=== PATIENT | female | born 1985 | race Caucasian/White ===

== ENCOUNTER 2022-11-11 12:58 | Outpatient (OUT) | payer OTHER, SELFPAY ==
--- NOTE | 2022-11-11 13:08 | US_ITS ---
[address] [address] Patient Name: MIKE PASTRANA MRN: [id number] date: 1985 Sex: F Assigned Patient Location: [facility] Current Patient Location: Accession/Order Number: [id number] Exam Date: 11/11/2022 13:15 Report Date: 11/11/2022 16:00 At the request of: OLE ABARCA Procedure: US OB placenta EXAMINATION: US OB placenta HISTORY: Uterine cramping N94.89 COMPARISON: No relevant comparison available. FINDINGS: PLACENTA: Anterior with lower margin 9.7 cm from os. No subchorionic hematoma or abruption. CERVIX LENGTH: 3.4 cm in length, closed. HEART RATE: 140 bpm OTHER: None. GA: 24 weeks 5 days CARINA: 02/26/2023 US/US OB placenta IMPRESSION: 1. Single live intrauterine . 2. Normal-appearing anterior placenta without previa. 3. Closed cervix 3.4 cm in length. Electronically authenticated by: JIMBO ALARCON Date: 11/11/2022 16:00
--- NOTE | 2022-11-11 13:17 | US_ITS ---
The [address] [address] Patient Name: MIKE PASTRANA MRN: [id number] date: 1985 Sex: F Assigned Patient Location: [facility] Current Patient Location: Accession/Order Number: [id number] Exam Date: 11/11/2022 13:20 Report Date: 11/11/2022 16:00 At the request of: OLE ABARCA Procedure: US OB transvaginal EXAMINATION: US OB placenta HISTORY: Uterine cramping N94.89 COMPARISON: No relevant comparison available. FINDINGS: PLACENTA: Anterior with lower margin 9.7 cm from os. No subchorionic hematoma or abruption. CERVIX LENGTH: 3.4 cm in length, closed. HEART RATE: 140 bpm OTHER: None. GA: 24 weeks 5 days CARINA: 02/26/2023 US/US OB transvaginal IMPRESSION: 1. Single live intrauterine . 2. Normal-appearing anterior placenta without previa. 3. Closed cervix 3.4 cm in length. Electronically authenticated by: JIMBO ALARCON Date: 11/11/2022 16:00
== END 2022-11-11 12:59 | disposition home or self-care (01) ==
LOC: RAD 13:02
PROVIDERS: Visit Provider Midwife
DX: O26.892 Other specified pregnancy related conditions, second trimester (principal); N94.89 Other specified conditions associated with female genital organs and menstrual cycle; Z3A.24 24 weeks gestation of pregnancy
CPT/HCPCS: 76815; 76817

== ENCOUNTER 2022-12-23 15:56 | Outpatient (OUT) | payer OTHER, SELFPAY ==
--- NOTE | 2022-12-23 15:58 | US_ITS ---
[address] [address] Patient Name: MIKE PASTRANA MRN: [id number] date: 1985 Sex: F Assigned Patient Location: Current Patient Location: Accession/Order Number: [id number] Exam Date: 12/23/2022 16:00 Report Date: 12/24/2022 02:11 At the request of: OLE ABARCA Procedure: US OB growth EXAMINATION: US OB growth HISTORY: 30 weeks gestation of Z3A.30 COMPARISON: No relevant comparison available. FINDINGS: Heart Rate: 145.9 bpm Number: 1.0 Position: CEPHALIC Amniotic Fluid Volume: 14.2 cm Maximum Vertical Pocket: 6.7 cm BIOMETRY: BPD: 8.1 cm cm; 32 weeks 4 days HC: 29.1 cmcm; 32 weeks 0 days AC: 27.3 cm cm; 31 weeks 3 days FL: 6.1 cm cm; 31 weeks 5 days EFW: 1808.0 grams; 70% FL/AC: 22.4 FL/BPD: 75.4 HC/AC: 1.1 GESTATIONAL AGE: Age by EDC: 30 weeks 5 days CARINA by EDC: 02/26/2023 Age by US: 32 weeks 0 days CARINA by US: 02/17/2023 US/US OB growth IMPRESSION: 1. Single live intrauterine with growth detailed above. Electronically authenticated by: JIMBO ALARCON Date: 12/24/2022 02:11
== END 2022-12-23 15:57 | disposition home or self-care (01) ==
LOC: US 15:56
PROVIDERS: Visit Provider Midwife
DX: Z34.93 Encounter for supervision of normal pregnancy, unspecified, third trimester (principal)
CPT/HCPCS: 76816

== ENCOUNTER 2023-02-13 07:24 | Outpatient (OUT) | payer OTHER, SELFPAY ==
[2023-02-13 14:05] VITALS: BP 131/74; PULSE 84
--- OUTSIDE RECORDS SUMMARY | 2023-03-21 17:33 | XMS_ITS | CCD ---
Author Name Unknown Address [address] [place] [address] Organization [facility] Care Team Providers Care Top Installer Name Role Phone SANDI ESPINOZA Admitting Unavailable SANDI ESPINOZA Attending Unavailable [facility], DOCTOR Primary Care Unavailable JENS BUSBY V Consulting Unavailable SARAN ALARCON Consulting Unavailable SANDI ESPINOZA Consulting Unavailable OLE ABARCA Referring Unavailable OLE ABARCA Referring Unavailable OLE ABARCA Attending Unavailable Allergies Allergy Classification Reported Allergen(s) Allergy Type Date of Onset Reaction(s) Facility (1 source) Povidone-Iodine Drug Allergy [facility] Repository Problems Problem Classification Problem Date Documented Da te Episodic/Chronic Nonmalignant breast conditions (4 sources) Solitary cyst of left breast; Translations: [SOLITARY CYST OF LEFT BREAST] Onset: 04-19-2017 Episodic Results Test Name Value Interpretation Reference Range Facil ity US OB FOLLOW UP TRANSABDOMIN AL APPROACHon 02-16-2023 US OB FOLLOW UP TRANSABDOMIN AL APPROACH EXAM: US OB FOLLOW UP TRANSABDOMINAL APPROACH DATE: 02/16/2023 4:11 PM COMPARISON: 02/09/2023 Transabdominal ultrasound of the gravid uterus was performed. FINDINGS: A single live intrauterine is noted in cephalic position. cardiac activity is measured at 139 bpm. The cervix appears closed measuring approximately 4 cm in longitudinal length. A grade 1-appearing placenta is anterior without evidence of placenta previa. The amniotic fluid index measures approximately 14.3 cm measured in 4 quadrants, which is within normal limits for gestation. 59th percentile MEASUREMENTS: BPD 9.5 cm, FL 7.5 cm, AC 34.8 cm, HC 33.7 cm, which corresponds to 38 weeks 4 days, +/-3 weeks. ESTIMATED WEIGHT: 3558 g (7 lbs. 13 oz.), which is 68th percentile for gestation by LMP. No gross anatomic abnormalities are identified, within limits of the advanced gestational age. IMPRESSION: SINGLE LIVE INTRAUTERINE CORRESPONDING TO APPROXIMATELY 38 weeks 4 days, +/-3 weeks. NO GROSS ABNORMALITY IDENTIFIED, WITHIN THE LIMITS OF THE STUDY. ELECTRONICALLY SIGNED BY: Saran Simmons MD Normal Not Available US OB FOLLOW UP TRANSABDOMIN AL APPROACHon 02-09-2023 US OB FOLLOW UP TRANSABDOMIN AL APPROACH FINDINGS: Single live intrauterine With heart rate 143 bpm. Cephalic position. Anterior grade 2 placenta. CRISTOFER 13.31 cm. Cervical length 4.1 cm. Estimated sonographic gestational age 37 weeks, 6 days. Gestational age by dates 37 weeks, 4 days. Estimated sonographic date of delivery February 24, 2023. Estimated weight 3323 g (66.3%, by LMP percentile). BPD 9.37 cm. HC 33.17 cm. FL 7.37 cm. AC 33.93 cm. IMPRESSION: Impression: Single live intrauterine with estimated sonographic gestational age 37 weeks, 4 days. ELECTRONICALLY SIGNED BY: Rodrigue Nava MD Normal Not Available US OB FOLLOW UP TRANSABDOMIN AL APPROACHon 02-02-2023 OB FOLLOW UP TRANSABDOMIN AL APPROACH This is a summary report. The complete report is available in the patient's medical record. If you cannot access the medical record, please contact the sending organization for a detailed fax or copy. US OB FOLLOW UP TRANSABDOMINAL APPROACH: 02/02/2023 8:28 AM CLINICAL HISTORY cramping, cervical length; supervision of elderly multigravida, third trimester COMPARISON: January 26, 2023 Transabdominal ultrasound of the gravid uterus was performed. FINDINGS: A single live intrauterine is noted in cephalic position. cardiac activity measures approximately 147 beats per minute. The lower uterine segment and cervix are seen, and appear within normal limits. The cervix measures approximately 4.79 cm in longitudinal length. A grade 6-1-ddxpjnjle placenta is anterior and fundal without evidence of an abnormal subplacental collection or previa. The amniotic fluid measures 16.82 cm and is within normal limits for gestation. The following measurements were obtained: BPD 9.29 cm, HC 32.91 cm, AC 32.77 cm, FL 7.16 cm, which corresponds to an aggregate gestational age of 37 weeks 1 day. Estimated weight is [address] the fetus in the 61st percentile. is no free fluid noted in the maternal pelvis. Neither maternal ovary is identified. IMPRESSION: SINGLE LIVE INTRAUTERINE CORRESPONDING TO APPROXIMATELY 37 WEEKS 1 DAY WITH AN EXPECTED DUE DATE OF FEBRUARY 22, 2023. NO GROSS ABNORMALITIES IDENTIFIED, WITHIN THE LIMITS OF THE STUDY. ELECTRONICALLY SIGNED BY: Annabel Lind DO Normal Not Available Comment on above: Order Comment: Cramp ing, cervical length US OB FOLLOW UP TRANSABDOMIN AL APPROACHon 01-26-2023 US OB FOLLOW UP TRANSABDOMIN AL APPROACH HISTORY: Interval follow-up. LMP 05/22/2022 with dates from LMP of 35 weeks 4 days. COMPARISON: 01/19/2023. TECHNIQUE: Sonography of the pelvis was performed by transabdominal technique. Images were obtained and stored in a permanent archive. RESULT: Gestation: Single present. Position: Cephalic BPD: 8.8 cm HC: 31.7 cm AC: 32.3 cm FL: 6.9 cm Anatomy: No gross anomalies in the visualized anatomy. Cardiac activity: 143 bpm Estimated weight (EFW): 2805 g (6 pounds 3 ounces), 59.5 percentile Estimated gestational age: 35 weeks 5 days estimated gestational age by composite. Cervix: Closed measuring 4.1 cm in length. Placenta: Location: Anterior Grade: 1 Previa: absent Amniotic fluid: 14.0 cm, 50.8 percentile IMPRESSION: Single, live intrauterine with estimated 35 weeks 5 days gestational age. Appropriate interval growth. ELECTRONICALLY SIGNED BY: Mariano Sims MD Normal Not Available Encounters Encounter Date Encounter Type Care Provider Facility Start: 02-27-2023 End: 02-28-2023 ambulatory O[facility] L [facility] Not Available Start: 02-16-2023 End: 02-17-2023 ambulatory [facility] Not Available Start: 02-09-2023 End: 02-10-2023 ambulatory [facility] Not Available Start: 04-19-2017 End: 04-19-2017 Patient encounter procedure SANDI ESPINOZA Facility:[facility] Payers Date Payer Category Payer Unknown [id number] 1985 Unknown [id number] 1985 Unknown [id number] 1985 Unknown [id number] 1959 Unknown [id number] Summary Purpose Family History No Family History Records FoundNo Family History Records Found Advance Directives No Advanced Directives Records FoundNo Advanced Directives Records Found Additional Source Comments INFORMATION SOURCE (unrecogn ized section and content) DATE CREATED AUTHOR 01/08/2019 [facility] DATE [facility]ATED [facility]2023 [facility] FOR RECORDS PERTAINING TO PATIENTS WHO ARE OR HAVE BEEN ENROLLED IN A CHEMICAL DEPENDENCY/SUBSTANCEABUSE PROGRAM, SOME INFORMATION MAY BE OMITTED. This clinical summary was aggregated from multiple sources. Caution should be exercised in using it in the provision of clinical care. This summary normalizes information from multiple sources, and as a consequence, information in this document may materially change the coding, format and clinical context of patient data. In addition, data may be omitted in some cases. CLINICAL DECISIONS SHOULD BE BASED ON THE PRIMARY CLINICAL RECORDS. [employer] provides no warranty or guarantee of the accuracy or completeness of information in this document.
== END 2023-02-13 15:00 | disposition home or self-care (01) ==
LOC: FBCO 07:24 → FBC 14:01
PROVIDERS: Visit Provider Obstetrics & Gynecology
DX: O09.529 Supervision of elderly multigravida, unspecified trimester (principal); Z3A.00 Weeks of gestation of pregnancy not specified
CPT/HCPCS: 59025

== ENCOUNTER 2023-02-20 05:49 | Inpatient (IN) | payer OTHER, SELFPAY ==
[2023-02-20] VITALS (60 sets, daily range): BP systolic 95–142; BP diastolic 55–93; PULSE 62–91; RESP 9–23; TEMP 36.5–37.1; O2SAT 97–99
[2023-02-20] MEDS: LACTATED RINGER'S SOLUTION 1,000 ML 125 ML IV ×2 (06:58→13:04)
[2023-02-20] MEDS: OXYTOCIN/0.9 % SODIUM CHLORIDE 10 UNITS/500 ML PLAST..BAG 6 UNIT IV (06:58)
[2023-02-20 07:34] LABS: Hematocrit 37.2 % (36.0-48.0); Hemoglobin 12.1 g/dL (12.0-16.0); Mean Corpuscular HGB Conc 32.5 g/dL (29.9-35.2); Mean Corpuscular Hemoglobin 30.3 pg (26.7-34.0); Mean Platelet Volume 11.9 fL (9.5-13.5); Platelet Count 308 10^3/uL (150-450); Red Cell Distribution Width 13.2 % (11.0-15.0); White Blood Count 15.7 10^3/uL (4.0-11.0)
[2023-02-20 07:47] LABS: Amphetamine Screen Urine NEGATIVE (NEGATIVE); Barbiturates Screen Urine NEGATIVE (NEGATIVE); Benzodiazepines Screen Urine NEGATIVE (NEGATIVE); Buprenorphine Screen Urine NEGATIVE (NEGATIVE); Cannabinoid Screen Urine NEGATIVE (NEGATIVE); Cocaine Screen Urine NEGATIVE (NEGATIVE); Methadone Screen Urine NEGATIVE (NEGATIVE); Methamphetamines Screen Urine NEGATIVE (NEGATIVE); Opiate Screen Urine NEGATIVE (NEGATIVE); Oxycodone Screen Urine NEGATIVE (NEGATIVE); Phencyclidine Screen Urine NEGATIVE (NEGATIVE); Tricyclic Antidepressant Urine NEGATIVE (NEGATIVE)
--- NOTE | 2023-02-20 12:46 | PM.EN ---
Event Note Event Note: to room to assess patient. SVE performed and patient is /-2 AROM done with sterile amnio hook with return of a large amount of clear, odorless amniotic fluid. heart tones stable, before, during and after ROM. Patient tolerated procedure well. Dr Mckeon updated with patient progress.
[2023-02-20] MEDS: ROPIVACAINE HCL/PF 400 MG/200 ML PREMIX 6 MG EPIDURAL (14:41)
--- NOTE | 2023-02-20 16:02 | PM.OBHP ---
OB - H&P: HPI History of Present Illness Chief complaint: INDUCTION : 2 Para: 1 Gestational age based on last menstrual period: 39.1 History of Present Dating criteria: LMP confirmed by 1st trimester US care: good care Ultrasounds: normal 1st trimester US and normal mid trimester US complications comment: AMA Medical complications OB: none Labs Blood type: B (+) positive Rubella: immune RPR/VDLR: nonreactive GBS status: negative HBsAG: negative Review of Systems ROS Status of ROS 10 or more systems reviewed and unremarkable except as noted in history and below PFSH PFSH Surgical History (Updated 02/20/23 @ 07:17 by Usha Richard) History of surgery on arm ?Z98.890 - Other specified postprocedural states (ICD-10) Social History (Updated 02/20/23 @ 07:20 by Usha Richard) Within the past year, how often did you have a drink containing alcohol: never Score interpretation: A score less than 3 is consistent with normal alcohol consumption. Smoking status: Never smoker Non-prescribed substance use: denies use Little interest or pleasure in doing things: not at all Feeling down, depressed, or hopeless: not at all Feel stressed/tense/nervous/anxious/difficulty sleeping: not at all Meds Home Medications and Allergies Home Medications Medication Instructions Recorded Confirmed Type famotidine 20 mg tablet mg 02/20/23 History [id number]-ehh-Sf-FA 1 mg tab PO 02/20/23 History tablet Allergies Allergy/AdvReac Type Severity Reaction Status Date / Time No Known Drug Allergies Allergy Verified 02/20/23 06:57 Exam Constitutional Vital Signs, click to edit/add: Last Vital Signs Temp 98.7 F 02/20/23 12:47 Pulse 88 02/20/23 15:56 Resp 18 02/20/23 12:47 BP 130/78 02/20/23 15:56 O2 Del Method Room Air 02/20/23 06:25 Documenting provider has reviewed patient's vital signs: yes Common normals: no apparent distress and oriented x3 HENMT Common normals: normocephalic Eye Common normals: EOMs intact bilaterally Neck & C-Spine Common normals: full ROM Lymph Lymphatic: no lymphadenopathy noted Respiratory Common normals: normal respiratory effort and no retractions Cardio Common normals: regular rate, regular rhythm and no murmurs Rate: regular rate Rhythm: regular rhythm GI Common normals: Normal to inspection, nondistended, normoactive bowel sounds present Common normals: no CVA tenderness Back & Pelvis Common normals: no CVA tenderness Extremity Common normals: normal to inspection and full ROM Neuro Common normals: oriented x3 and moves all extremities Sensorium/orientation: awake, alert, oriented to person, oriented to place and oriented to time Psych Common normals: mental status grossly normal, thought process normal and cooperative Results Labs Labs: Short CBC 02/20/23 Range/Units 06:25 WBC 15.7 H (4.0-11.0) 10^3/uL Hgb 12.1 (12.0-16.0) g/dL Hct 37.2 (36.0-48.0) % Plt Count 308 (150-450) 10^3/uL OB - A/P Assessment and Plan (1) Term : (2) Late deceleration of heart rate: Plan primary section for repetitive late decelerations
[2023-02-20] MEDS: FAMOTIDINE/PF 20 MG/2 ML VIAL IV (16:31)
[2023-02-20] MEDS: CITRIC ACID/SODIUM CITRATE 30 ML SOLUTION ORACIT SHOHL'S SOLN PO (16:31)
[2023-02-20] MEDS: CEFAZOLIN SODIUM/DEXTROSE,ISO 2 GM/50 ML PIGGYBACK IV ×2 (16:31→22:24)
[2023-02-20] MEDS: METOCLOPRAMIDE HCL 10 MG/2 ML VIAL IVP (16:32)
[2023-02-20] MEDS: LACTATED RINGER'S SOLUTION 1,000 ML 50 ML IV (17:10)
--- NOTE | 2023-02-20 17:31 | PM.ONB ---
Brief Operative Note Date of procedure: 02/20/23 Pre-op diagnosis: iup at 39 1/7wks, recurrent decelerations Post-op diagnosis: same as pre-op Procedure: NAME OF PROCEDURE: [ section ] PROCEDURE: Patient was taken back to the Operating Room where she was given a spinal anesthesia with Duramorph without difficulty. She was prepped and draped in the normal sterile fashion. A Pfannenstiel skin incision was then made 2 cm above the symphysis pubis and carried down to underlying rectus fascia using a Bovie. The fascia was incised in the midline and extended laterally using Lugo scissors. Two Johny clamps were placed on the superior aspect of the fascia and dissected off the underlying rectus muscles. The same was performed on the inferior aspect as well. The muscles were then in the midline. Peritoneum was identified and entered bluntly. The peritoneum was then extended superiorly and inferiorly with good visualization of the bladder. The bladder blade was inserted. A low transverse incision was made on the patient's uterus and extended laterally digitally. The was then delivered atraumatically after the bladder blade was removed in the cephalic position. The cord was clamped and cut. Cord blood was obtained. The was handed off to awaiting team. The patient's placenta was spontaneously delivered. The uterus was then exteriorized. The uterus was cleared of all clots and debris. The bladder blade was reinserted. The patient's uterine incision was closed using #0 Vicryl in a running lock fashion. Excellent hemostasis was assured. The uterus was then returned to the patient's abdomen. The patient's abdomen was copiously irrigated using warm saline. Peritoneal gutters were cleared of all clots and debris. Again excellent hemostasis was assured. The patient's peritoneum was closed using 3-0 Vicryl in a running fashion. The patient's fascia was closed using #0 Vicryl in a running fashion. The patient's skin was closed using 4-0 Vicryl subcuticularly. The patient tolerated the procedure well. Sponge, lap, and needle counts were correct x2. The patient was taken to the Recovery Room in stable condition. Anesthesia: spinal Surgeon: Osman Mckeon Legal Secretary Receptionist: OLE ABARCA Estimated blood loss (mL): 600 Pathology: other (placenta) Condition: stable Disposition: PACU
--- NOTE | 2023-02-20 17:32 | P.OBPRC_ITS ---
Procedure Pre-op/Post-op diagnoses: Pre-Op/Post-Op Diagnoses Operation Date: 02/20/23 16:30 <No data on this case meets the specified criteria> Procedure: Procedures Operation Date: 02/20/23 16:30 Actual Procedure Side Surgeon p Not Applicable Osman Mckeon DO Miniature Train Driver: OLE ABARCA Estimated blood loss (mL): 600 Disposition: PACU Anesthesia type: None
[2023-02-20] MEDS: OXYTOCIN/0.9 % SODIUM CHLORIDE 20 UNITS/1,000 ML PLAST..BAG 125 UNIT IV (18:28)
[2023-02-20] MEDS: ONDANSETRON PF 4 MG/2 ML VIAL IV (22:24)
[2023-02-21] MEDS: KETOROLAC TROMETHAMINE 30 MG/ML VIAL IVP ×2 (01:20→08:54)
[2023-02-21] MEDS: ACETAMINOPHEN 500 MG TABLET 1000 MG PO ×3 (05:16→18:11)
[2023-02-21 06:26] VITALS: BP 119/67; PULSE 82
[2023-02-21 07:00] LABS: Hematocrit 30.8 % (36.0-48.0); Hemoglobin 10.2 g/dL (12.0-16.0); Mean Corpuscular HGB Conc 33.1 g/dL (29.9-35.2); Mean Corpuscular Hemoglobin 30.6 pg (26.7-34.0); Mean Corpuscular Volume 92.5 fL (81.0-99.0); Mean Platelet Volume 11.3 fL (9.5-13.5); Platelet Count 291 10^3/uL (150-450); Red Blood Count 3.33 10^6/uL (4.20-5.40); Red Cell Distribution Width 13.1 % (11.0-15.0)
[2023-02-21 07:14] LABS: Band Neutrophils Absolute 0.5 10^3/uL (0.0-0.3)
[2023-02-21 07:15] LABS: Lymphocytes Absolute Manual 1.82 10^3/uL (1.20-3.80); Monocytes Absolute Manual 1.56 10^3/uL (0.30-0.80)
[2023-02-21 08:05] VITALS: RESP 14; TEMP 36.6
[2023-02-21 08:07] VITALS: BP 108/67; PULSE 72
--- NOTE | 2023-02-21 08:12 | PM.OBPN ---
OB - PN: Subj Subjective Patient comments: no complaints and pain well controlled [place] status: doing well Exam Constitutional Vital Signs, click to edit/add: Last Vital Signs Temp 97.7 F 02/20/23 18:01 Pulse 72 02/21/23 08:07 Resp 11 L 02/20/23 19:31 BP 108/67 02/21/23 08:07 Pulse Ox 99 02/20/23 20:30 O2 Del Method Room Air 02/20/23 19:00 Documenting provider has reviewed patient's vital signs: yes Common normals: no apparent distress and oriented x3 HENMT Common normals: normocephalic Respiratory Common normals: normal respiratory effort, no retractions and clear to auscultation bilaterally ( inspiratory wheeze audible on right upper base, clears w clearing throat) Effort & inspection: able to speak in complete sentences Cardio Common normals: regular rate, regular rhythm and no murmurs GI Common normals: Normal to inspection, nondistended, normoactive bowel sounds present Results Labs Labs: Short CBC 02/21/23 Range/Units 06:32 WBC 26.0 H (4.0-11.0) 10^3/uL Hgb 10.2 L (12.0-16.0) g/dL Hct 30.8 L (36.0-48.0) % Plt Count 291 (150-450) 10^3/uL OB - PN: A/P Assessment and Plan (1) Term : (2) Late deceleration of heart rate: Plan - day: 7 Plan: other (patient admitted for elevated blood pressure. continue routine orders. ) Time Spent with Patient Time: Total time spent is greater than 50% in coordination of care (as documented) at patient's floor/unit and/or counseling patient: Total time spent with greater than 50% in coordination of care (as documented) at patient's floor/unit and/or counseling patient: less than 15 minutes
[2023-02-21] MEDS: DOCUSATE SODIUM 100 MG CAPSULE PO ×2 (08:55→21:51)
[2023-02-21] MEDS: ENOXAPARIN SODIUM 40 MG/0.4 ML SYRINGE SUBQ (08:55)
[2023-02-21 11:40] VITALS: BP 114/70; PULSE 74; RESP 16; TEMP 36.6
--- NOTE | 2023-02-21 14:32 | PC.NURSE ---
LC into room, mom resting on side while dad holds . Baby noted to be fussy, rooting on swaddle, smacking mouth obvious feeding cues. Discussed breast feeding and mom states everything is going well. Mom states baby nursed 1 hour ago he should not be hungry baby nursed 15 min on one side only. LC reviews feeding cues and encourages latching of infant. Mom accepts to nurse. Confidently places baby to left breast with deep latch. Denies discomfort or questions at this time. Encouraged to follow baby feeding cues for feedings and clock as guideline if baby does not wake to feed. Verbalized understanding.
[2023-02-21 15:25] VITALS: BP 109/60; PULSE 78; RESP 16; TEMP 37.3
[2023-02-21] MEDS: IBUPROFEN 400 MG TABLET 800 MG PO (18:12)
--- NOTE | 2023-02-21 19:29 | W.PC.ACHO ---
Registration Status: ADM IN Primary Language: Argentine Preferred Language: Argentine Active Medications Generic Name Dose Route Start Last Admin Trade Name Freq PRN Reason Stop Dose Admin Acetaminophen 1,000 mg 02/20/23 23:00 02/21/23 18:11 Acetaminophen 500 Mg Tablet PO 1,000 mg Q6H EROS Administration Al Hydroxide/Mg Hydroxide 2,400 mg 02/20/23 17:50 Magnesium Hydroxide 2,400 Mg/10 Ml Oral.Susp PO Q6H PRN Dyspepsia Diphtheria/Pertussis/Tetanus Vacc 0.5 ml 02/22/23 09:00 Adacel Diph,Pertuss(Acell),Tet Vac/Pf 0.5 Ml Adult Syringe IM 02/22/23 09:01 .ONCE ONE Docusate Sodium 100 mg 02/21/23 09:00 02/21/23 08:55 Docusate Sodium 100 Mg Capsule PO 100 mg BID EROS Administration Enoxaparin Sodium 40 mg 02/21/23 09:00 02/21/23 08:55 Enoxaparin Sodium 40 Mg/0.4 Ml Syringe SUBQ 40 mg Q24H EROS Administration Lactated Ringer's 1,000 mls @ 125 mls/hr 02/20/23 17:45 Lactated Ringers IV .Q8H EROS Ibuprofen 800 mg 02/21/23 17:30 02/21/23 18:12 Ibuprofen 400 Mg Tablet PO 800 mg Q8H EROS Administration Measles/Mumps/Rubella Vaccine Live 0.5 ml 02/22/23 09:00 Measles,Mumps,Rubella Vacc/Pf 0.5 Ml Vial SQ 02/22/23 09:01 .ONCE ONE Ondansetron HCl 4 mg 02/20/23 18:00 02/20/23 22:24 Ondansetron Pf 4 Mg/2 Ml Vial IV 4 mg Q6H PRN Administration Nausea And Vomiting Ondansetron HCl 4 mg 02/20/23 18:00 Ondansetron 4 Mg Rapdis Tablet PO Q6H PRN Nausea And Vomiting Oxycodone HCl 5 mg 02/20/23 18:29 Oxycodone Hcl 5 Mg Tablet PO Q6H PRN brekthrough pain Senna 17.2 mg 02/20/23 20:00 Sennosides 8.6 Mg Tablet PO QHS PRN Constipation Simethicone 80 mg 02/20/23 17:50 Simethicone 80 Mg Tab.Chew PO QID PRN Abdominal Distention Varicella Virus Vaccine Live 0.5 ml 02/22/23 09:00 Varicella Vaccine Live/Pf 0.5 Ml Vial SUBQ 02/22/23 09:01 .ONCE ONE Respiratory Pulse Oximetry 99 Pulse Oximetry 99 Pulse Oximetry 97 Pulse Oximetry 97 Pulse Oximetry 99 Pulse Oximetry 98 Pulse Oximetry 97 Pulse Oximetry 97 Pulse Oximetry 99 Pulse Oximetry 99 Oxygen Delivery Method Room Air Oxygen Delivery Method Room Air Oxygen Delivery Method Room Air Oxygen Delivery Method Room Air Oxygen Delivery Method Room Air Oxygen Delivery Method Room Air Cardiology Heart Sounds Strong,Regular Heart Sounds Strong,Regular Heart Sounds Strong,Regular Heart Sounds Strong,Regular Bowels Bowel Pattern No Bowel Movement Bowel Pattern No Bowel Movement Bowel Pattern No Bowel Movement Bowel Pattern No Bowel Movement Renal Bladder Pattern Continent Bladder Pattern Continent Bladder Pattern Continent
[2023-02-22 00:45] VITALS: RESP 16; TEMP 36.7
[2023-02-22] MEDS: ACETAMINOPHEN 500 MG TABLET 1000 MG PO ×3 (00:46→12:29)
[2023-02-22 00:50] VITALS: BP 110/65; PULSE 78
[2023-02-22] MEDS: IBUPROFEN 400 MG TABLET 800 MG PO ×2 (03:22→12:30)
[2023-02-22] MEDS: SIMETHICONE 80 MG TAB.CHEW PO (04:57)
[2023-02-22 08:05] VITALS: RESP 14; TEMP 36.9
[2023-02-22 08:06] VITALS: BP 124/61; PULSE 86
[2023-02-22] MEDS: OXYCODONE HCL 5 MG TABLET PO (08:17)
[2023-02-22] MEDS: DOCUSATE SODIUM 100 MG CAPSULE PO (08:18)
[2023-02-22] MEDS: ENOXAPARIN SODIUM 40 MG/0.4 ML SYRINGE SUBQ (08:18)
--- NOTE | 2023-02-22 09:18 | PM.OBPN ---
OB - PN: Subj Subjective Patient comments: no complaints and pain well controlled [place] status: doing well Exam Constitutional Vital Signs, click to edit/add: Last Vital Signs Temp 98.4 F 02/22/23 08:05 Pulse 86 02/22/23 08:06 Resp 14 02/22/23 08:05 BP 124/61 02/22/23 08:06 Pulse Ox 99 02/20/23 20:30 O2 Del Method Room Air 02/22/23 08:05 Documenting provider has reviewed patient's vital signs: yes Common normals: no apparent distress Respiratory Common normals: normal respiratory effort and clear to auscultation bilaterally Cardio Common normals: regular rate and regular rhythm GI Common normals: Normal to inspection, nondistended, normoactive bowel sounds present Extremity Common normals: no calf tenderness OB - PN: A/P Assessment and Plan (1) Term : (2) Late deceleration of heart rate: Plan - day: 2 Plan: routine postop care, discharge home and follow up 6 weeks Time Spent with Patient Time: Total time spent is greater than 50% in coordination of care (as documented) at patient's floor/unit and/or counseling patient: Total time spent with greater than 50% in coordination of care (as documented) at patient's floor/unit and/or counseling patient: less than 15 minutes
--- NOTE | 2023-02-28 | DS_ITS ---
DISCHARGE DATE: ??02/28/2023 PRIMARY DIAGNOSES: 1.? Intrauterine at 39 weeks. 2.? Recurrent decelerations. PROCEDURE:? section. HOSPITAL COURSE:? As expected.? Please see chart for full details.? LABORATORY DATA:? Please see chart. COMPLICATIONS:? None. DISCHARGE CONDITION:? Stable. CONSULTATION:? Anesthesia. DISCHARGE INSTRUCTIONS: 1.? Diet:? Regular. 2.? Medications: a.? Percocet 5/325 one to two p.o. every 4-6 hours p.r.n. pain. b.? Motrin 800 one p.o. every 8 hours p.r.n. pain. 3.? Followup in one week. Restrictions:? Pelvic rest for 6 weeks.? No heavy lifting.? May drive when pain free and no longer on narcotics. [place]ID[place]
== END 2023-02-22 15:25 | disposition home or self-care (01) | DRG 540 ==
PROVIDERS: Obstetrics & Gynecology; Admitting Provider Midwife; Visit Provider Midwife
PROC: 10D00Z1 Extraction of Products of Conception, Low, Open Approach (ICD-10-PCS; CPT 59514; principal; 2023-02-20 16:30)
DX: O76 Abnormality in fetal heart rate and rhythm complicating labor and delivery (principal); Z3A.39 39 weeks gestation of pregnancy; Z37.0 Single live birth; Z87.891 Personal history of nicotine dependence
CPT/HCPCS: 36415; 59050; 64488; 80307; 85027; 86850; 86900; 86901; 88307; 96372; 96374; 96375

== ENCOUNTER 2023-02-27 08:37 | Outpatient (OUT) | payer OTHER, SELFPAY ==
--- NOTE | 2023-02-27 18:00 | PC.NURSE ---
Jenelle, daughter, and 7 day old son arrive for follow up. No complaints offered except tired as this is 3rd appointment for today. Jenelle seen per PCP and steri strips removed from incision while was seen by PCP Dr [place]. Only concern is weight gain for infant as he remains at 6.9% loss and has not gained since discharge. Infant i both breast and formula fed. Mainly breast, spends 10 min per side when feeding and is very sleepy per mom report. She does give him 45ml formula for 1st night time feed, otherwise is at the breast. Mom tries to pump evry 3 hours to aid in supply as she had low supply with first delivery 17 years ago. No history of endocrine system problems or PCOS. Discussed switch feeding to keep baby more alert and does well this feed using switch method. Baby content when finishes feed active nursing. Mom will return 03/06/2023 for weight check and support.
[2023-02-27 18:02] VITALS: BP 136/86; PULSE 73; RESP 18; TEMP 36.6; O2SAT 98
== END 2023-02-27 16:55 | disposition home or self-care (01) ==
PROVIDERS: Visit Provider Midwife
DX: Z39.2 Encounter for routine postpartum follow-up (principal)

== ENCOUNTER 2023-03-06 08:14 | Outpatient (OUT) | payer OTHER, SELFPAY ==
--- NOTE | 2023-03-06 11:20 | PC.NURSE ---
Jenelle john 2 week old Saint arrive for support. States So much better this week . Nipples are healed from slight excoriation and baby latching well consistently. Mom pumping after every feed. Discussed need for pumping or if security. Discussed possible over supply and trouble with having too much milk. Verbalized understanding. Able to feed confidently and no further questions at this time. Leaves ambulatory with infant. Plans to attend [facility] group 03/21/2023.
== END 2023-03-06 11:27 | disposition home or self-care (01) ==
LOC: FBCO 08:16
PROVIDERS: Visit Provider Midwife
DX: Z39.1 Encounter for care and examination of lactating mother (principal)
CPT/HCPCS: G0463